=== PATIENT | male | born 1950 | race Caucasian/White ===

== ENCOUNTER 2024-09-17 22:22 | Emergency (ER) | payer MEDICARE, SELFPAY ==
[2024-09-17 22:37] VITALS: BP 122/72; PULSE 68; RESP 18; TEMP 36.4; O2SAT 97; BMI 28.8
[2024-09-17] MEDS: amoxicillin-clav 875-125 mg Tablet 3 TAB PO (23:14)
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
[2024-09-17] MEDS: cefTRIAXone 1,000 MG in water for injection-sterile 2.1 ML 2.1 MG IM (23:15)
[2024-09-17] MEDS: dexamethasone 10 mg/mL INJ IM (23:15)
[2024-09-17 23:31] VITALS: BP 134/73; PULSE 62; RESP 16; O2SAT 96
[2024-09-17 23:36] VITALS: BP 134/73; PULSE 65; O2SAT 95
== END 2024-09-17 23:37 | disposition home or self-care (01) ==
PROVIDERS: Emergency Provider Physician Assistant; PCP Family Medicine
DX: K04.7 Periapical abscess without sinus (principal)
CPT/HCPCS: 96372; 99284; J0696; J1100